=== PATIENT | female | born 1955 | race Caucasian/White ===

== ENCOUNTER 2018-02-13 10:24 | Inpatient (IN) | payer MEDICAID, OTHER ==
[~2018-02-13] VITALS: Ht 165.1 cm; Wt 90.9 kg
[2018-02-13] VITALS (9 sets, daily range): BP systolic 87–102; BP diastolic 64–72
[2018-02-13] MEDS: CefTRIAXone/D5W-Rocephin 1gm 50 ML IV SCH (08:00)
[2018-02-13] MEDS: K, MAG and/or Phos replacement - Verify level? MC SCH (08:00)
[2018-02-13] MEDS ORDERED: LORazepam 2 mg/ml vial IV ONE (10:35)
[2018-02-13] MEDS ORDERED: benztropine 1 mg/ml 2ml ampule IV ONE (10:35)
[2018-02-13] MEDS ORDERED: normal saline 1000ML IV soln IVB ONE (10:40)
[2018-02-13] MEDS ORDERED: propofol 1000mg/100ml bottle 100 ML IV ONE (10:56)
[2018-02-13 10:58] LABS: BASOPHILS # (AUTO) 0.1 X10'3 (0-0.2); BASOPHILS % (AUTO) 0.4 % (0-1); EOSINOPHILS # (AUTO) 0.5 X10'3 (0-0.9); EOSINOPHILS % (AUTO) 3.2 % (0-6); HEMOGLOBIN 10.3 g/dl (12.0-16.0); LYMPHOCYTES # (AUTO) 2.5 X10'3 (1.1-4.8); LYMPHOCYTES % (AUTO) 16.5 % (21-51); MEAN CORPUSCULAR HEMOGLOBIN 29.2 PG (27.0-31.0); MEAN CORPUSCULAR HGB CONC 33.2 % (33.0-36.5); MONOCYTES # (AUTO) 0.6 X10'3 (0-0.9); NEUTROPHILS # (AUTO) 11.3 X10'3 (1.8-7.7); NEUTROPHILS % (AUTO) 75.9 % (42-75); PLATELET COUNT 483 X10'3 (140-440); RED BLOOD COUNT 3.53 X10'6 (4.20-5.60); RED CELL DISTRIBUTION WIDTH 15.1 % (11.5-14.5); WHITE BLOOD COUNT 14.9 X10'3 (4.5-11.0)
[2018-02-13 11:12] LABS: ALANINE AMINOTRANSFERASE 14 U/L (12-78); ALBUMIN 2.9 G/DL (3.4-5.0); ALBUMIN/GLOBULIN RATIO 0.9 (1.1-1.5); ALKALINE PHOSPHATASE 85 IU/L (46-116); ANION GAP 17 (8-16); ASPARTATE AMINO TRANSFERASE 13 U/L (10-37); BILIRUBIN,TOTAL 0.2 MG/DL (0.1-1.0); BLOOD UREA NITROGEN 14 MG/DL (7-18); BUN/CREATININE RATIO 13.6 (6.6-38.0); CALCIUM 8.2 MG/DL (8.5-10.1); CHLORIDE 107 MMOL/L (99-107); CREATININE 1.03 MG/DL (0.40-0.90); GLUCOSE 273 MG/DL (70-104); POTASSIUM 3.7 MMOL/L (3.5-5.1); SODIUM 140 MMOL/L (135-145); TOTAL CARBON DIOXIDE 16.5 MMOL/L (24-32); TOTAL PROTEIN 6.3 G/DL (6.4-8.2); eGFR 54 ML/MIN
[2018-02-13 11:20] LABS: MAGNESIUM 1.4 MG/DL (1.5-2.4); PHOSPHORUS 3.5 MG/DL (2.3-4.5)
[2018-02-13] MEDS ORDERED: CefTRIAXone 2gm/D5W 50ml 50 ML IV ONE (11:20)
[2018-02-13] MEDS ORDERED: normal saline 1000ML IV soln IV ONE (11:20)
[2018-02-13 11:46] LABS: ABG BASE EXCESS -7.3 mmol/L (-2.0-3.0); ABG HCO3 17.1 mmol/L (22.0-26.0); ABG PCO2 (T) 31.7 mmHg (32.0-45.0); ABG PH (T) 7.352 (7.350-7.450); ABG PO2 (T) 90.3 mmHg (83-108); ALLEN'S TEST Positive; FCOHb 0.7 % (0.5-1.5); FLOW 40 L/min; FMetHb 0.2 % (0.3-1.12); FO2Hb 96.1 % (94-100); PATIENT TEMPERATURE 37.5
[2018-02-13] MEDS ORDERED: Neutra Phos packet PO PRN (12:00)
[2018-02-13] MEDS ORDERED: acetaminophen 325mg tablet PO PRN ×3 (12:00→15:55)
[2018-02-13] MEDS ORDERED: bisacodyl 10mg suppository rectal RC PRN (12:00)
[2018-02-13] MEDS ORDERED: potassium Cl 20 mEq SR tablet PO PRN ×2 (12:00)
[2018-02-13] MEDS ORDERED: sodium phosphate inj. 15 MMOL in dextrose 5%-water 150 ML IV PRN (12:00)
[2018-02-13] MEDS ORDERED: magnesium hydroxide 30ml (MOM) UD suspension PO PRN ×2 (12:00→16:05)
[2018-02-13] MEDS ORDERED: magnesium 4gm in 100ml NS 100 ML IV PRN (12:00)
[2018-02-13] MEDS ORDERED: sodium phosphate inj. 30 MMOL in dextrose 5%-water 250 ML IV PRN (12:00)
[2018-02-13] MEDS ORDERED: magnesium Cl slow-release 64mg tablet PO PRN (12:00)
[2018-02-13] MEDS ORDERED: magnesium 2GM in 50ml NS 50 ML IV PRN (12:00)
[2018-02-13] MEDS ORDERED: ondansetron/PF 4mg/2ml inj IV PRN (12:00)
[2018-02-13] MEDS: sodium bicarbonate (8.4%) inj. 150 MEQ in dextrose 5%-water 1,000 ML IV SCH (13:04)
[2018-02-13] MEDS ORDERED: ATOR20TA66 PO (13:49)
[2018-02-13] MEDS ORDERED: FLUR30CA13 PO (13:51)
[2018-02-13] MEDS ORDERED: GLIP5TAB13 PO (13:51)
[2018-02-13] MEDS ORDERED: MULT-933 PO (13:52)
[2018-02-13] MEDS ORDERED: LISI-600 PO (13:52)
[2018-02-13] MEDS ORDERED: METF500T PO (13:54)
[2018-02-13] MEDS ORDERED: HYDR12.5 PO (13:54)
[2018-02-13] MEDS ORDERED: LITH450T2 PO (13:54)
[2018-02-13] MEDS ORDERED: PALI234D IM (13:56)
[2018-02-13] MEDS ORDERED: OLAN10TA3 PO (13:59)
[2018-02-13] MEDS ORDERED: TRIH2TAB3 PO (13:59)
[2018-02-13] MEDS ORDERED: IBUP-2264 PO (14:01)
[2018-02-13] MEDS ORDERED: LORA-269 PO (14:01)
[2018-02-13] MEDS ORDERED: MAGN800O PO (14:04)
[2018-02-13] MEDS ORDERED: TRAM50TA2 PO (14:04)
[2018-02-13] MEDS ORDERED: ACET-2119 PO (14:04)
[2018-02-13] MEDS ORDERED: LORA2VIA27 IM (14:04)
[2018-02-13] MEDS ORDERED: INSU100C10 SQ (14:08)
[2018-02-13] MEDS ORDERED: ALBU8.5H8 INH (14:08)
[2018-02-13] MEDS ORDERED: MAGNESIUM HYDROXIDE 1200 MG PO PRN (15:55)
[2018-02-13] MEDS ORDERED: LORazepam 0.5 MG tablet PO PRN (15:55)
[2018-02-13] MEDS ORDERED: non-formulary drug (Albuterol Sulfate (Proair Hfa) 2 PUFFS) INH PRN (15:55)
[2018-02-13] MEDS ORDERED: FLURAZEPAM HCL 30 MG PO PRN (15:55)
[2018-02-13] MEDS ORDERED: albuterol 2.5 MG/3 ML nebule NEB PRN (16:05)
[2018-02-13] MEDS ORDERED: temazepam 15mg capsule PO PRN (16:05)
[2018-02-13] MEDS: glipizide 5mg tablet PO SCH (19:02)
[2018-02-13] MEDS: HYDROchlorothiazide 12.5mg capsule PO SCH (19:03)
[2018-02-13] MEDS: atorvastatin 20mg tablet PO SCH (19:03)
[2018-02-13] MEDS: lisinopril 10 MG tablet PO SCH (19:03)
[2018-02-13] MEDS: lithium carbonate 300mg SR tablet (LithoBID) PO SCH (20:00)
[2018-02-13] MEDS: olanzapine 10mg tablet PO SCH (20:00)
[2018-02-13] MEDS: heparin, porcine 5000 units/ml vial SQ SCH (20:00)
[2018-02-13] MEDS ORDERED: MESSAGE TO PHARMACY PO ONE (20:50)
[2018-02-13] MEDS ORDERED: dextrose ORAL solution 15 GM/59 ML bottle PO PRN ×2 (20:50)
[2018-02-13] MEDS ORDERED: insulin Lispro (HumaLOG) vial - multi-dose SQ SCH (20:50)
[2018-02-13] MEDS ORDERED: glucagon, human recombinant 1mg kit SUBCUT PRN (20:50)
[2018-02-13] MEDS ORDERED: dextrose 50%-water 50ml dispensing syringe IV PRN ×2 (20:50)
[2018-02-13] MEDS ORDERED: insulin glargine (Lantus) pen - multi-dose SQ SCH (21:00)
[2018-02-14] VITALS (15 sets, daily range): BP systolic 83–117; BP diastolic 60–79
[2018-02-14] MEDS: sodium bicarbonate (8.4%) inj. 150 MEQ in dextrose 5%-water 1,000 ML IV SCH ×3 (00:02→12:35)
[2018-02-14 05:30] LABS: BASOPHILS % (AUTO) 0.4 % (0-1); EOSINOPHILS # (AUTO) 0.3 X10'3 (0-0.9); EOSINOPHILS % (AUTO) 3.3 % (0-6); HEMATOCRIT 29.1 % (35.0-45.0); HEMOGLOBIN 9.7 g/dl (12.0-16.0); LYMPHOCYTES # (AUTO) 2.9 X10'3 (1.1-4.8); LYMPHOCYTES % (AUTO) 27.4 % (21-51); MEAN CORPUSCULAR HEMOGLOBIN 29.1 PG (27.0-31.0); MEAN CORPUSCULAR HGB CONC 33.4 % (33.0-36.5); MEAN CORPUSCULAR VOLUME 86.9 FL (78-98); MEAN PLATELET VOLUME 7.4 FL (7.4-10.4); MONOCYTES # (AUTO) 0.7 X10'3 (0-0.9); MONOCYTES % (AUTO) 6.7 % (2-12); NEUTROPHILS # (AUTO) 6.6 X10'3 (1.8-7.7); NEUTROPHILS % (AUTO) 62.2 % (42-75); PARTIAL THROMBOPLASTIN TIME 26 SECONDS (22-32); PLATELET COUNT 450 X10'3 (140-440); PROTHROMBIN TIME 10.4 SECONDS (9.0-12.0); RED BLOOD COUNT 3.35 X10'6 (4.20-5.60); RED CELL DISTRIBUTION WIDTH 15.1 % (11.5-14.5); WHITE BLOOD COUNT 10.5 X10'3 (4.5-11.0)
[2018-02-14 05:43] LABS: ALANINE AMINOTRANSFERASE 23 U/L (12-78); ALBUMIN 2.8 G/DL (3.4-5.0); ALBUMIN/GLOBULIN RATIO 0.8 (1.1-1.5); ALKALINE PHOSPHATASE 69 IU/L (46-116); ANION GAP 6 (8-16); ASPARTATE AMINO TRANSFERASE 66 U/L (10-37); BILIRUBIN,TOTAL 0.3 MG/DL (0.1-1.0); BLOOD UREA NITROGEN 9 MG/DL (7-18); BUN/CREATININE RATIO 11.1 (6.6-38.0); CHLORIDE 110 MMOL/L (99-107); CREATININE 0.81 MG/DL (0.40-0.90); GLUCOSE 131 MG/DL (70-104); MAGNESIUM 1.8 MG/DL (1.5-2.4); PHOSPHORUS 3.2 MG/DL (2.3-4.5); POTASSIUM 3.7 MMOL/L (3.5-5.1); SODIUM 145 MMOL/L (135-145); TOTAL CARBON DIOXIDE 29.1 MMOL/L (24-32); TOTAL PROTEIN 6.3 G/DL (6.4-8.2); eGFR 72 ML/MIN
[2018-02-14 06:00] LABS: HEMOGLOBIN A1C 6.4 % (4.5-6.2)
[2018-02-14] MEDS: atorvastatin 20mg tablet PO SCH (07:24)
[2018-02-14] MEDS: CefTRIAXone/D5W-Rocephin 1gm 50 ML IV SCH (07:24)
[2018-02-14] MEDS: HYDROchlorothiazide 12.5mg capsule PO SCH (07:25)
[2018-02-14] MEDS: heparin, porcine 5000 units/ml vial SQ SCH (07:26)
[2018-02-14] MEDS: lisinopril 10 MG tablet PO SCH (07:26)
[2018-02-14] MEDS: glipizide 5mg tablet PO SCH (07:26)
[2018-02-14] MEDS ORDERED: non-formulary drug (Multivitamin (One Daily Multivitamin) 1 TAB) PO SCH (08:00)
[2018-02-14] MEDS ORDERED: multivitamins, therapeutics tablet PO SCH (08:00)
[2018-02-14] MEDS: olanzapine 10mg tablet PO SCH (08:00)
[2018-02-14] MEDS: K, MAG and/or Phos replacement - Verify level? MC SCH (08:00)
[2018-02-14] MEDS: lithium carbonate 300mg SR tablet (LithoBID) PO SCH (09:57)
[2018-02-14] MEDS ORDERED: lactobacillus rhamnosus 10,000 MMU CELLS/CAPSULE PO SCH (20:00)
== END 2018-02-14 16:18 | DRG 58 ==
LOC: ER 10:26 → ED HOLD 11:57 → ICU 2S 15:29
DX: G21.0 Malignant neuroleptic syndrome (principal); I10 Essential (primary) hypertension; E11.9 Type 2 diabetes mellitus without complications; T43.505A Adverse effect of unspecified antipsychotics and neuroleptics, initial encounter; F31.9 Bipolar disorder, unspecified; Z88.8 Allergy status to other drugs, medicaments and biological substances; Z79.899 Other long term (current) drug therapy; Z79.4 Long term (current) use of insulin; Y92.89 Other specified places as the place of occurrence of the external cause
CPT/HCPCS: 36415; 36600; 71045; 80053; 82803; 82948; 83036; 83605; 83735; 84100; 84443; 84484; 85018; 85025; 85610; 85730; 87040; 87070; 93005; 96361; 96374; 96375; 97116; 97161; 97535; 99285; A6213; C1758; J0515; J0696; J1644; J1815; J2060; J2704; J7030

== ENCOUNTER 2018-03-02 16:26 | Inpatient (IN) | payer MEDICAID ==
[~2018-03-02] VITALS: Ht 165.1 cm; Wt 81.0 kg
[~2018-03-02 16:26] MED LIST: ACET-2119 PO; ALBU8.5H8 INH; ATOR20TA66 PO; GLIP5TAB13 PO; HYDR12.5 PO; LISI-600 PO; LITH450T2 PO; LORA-269 PO; MAGN800O PO; METF500T PO; MULT-933 PO; PALI234D IM; TRIH2TAB3 PO
[2018-03-02] MEDS ORDERED: normal saline 1000ML IV soln IV ONE (16:50)
[2018-03-02 17:23] LABS: CLARITY,URINE CLEAR (Clear); GLUCOSE, URINE NEGATIVE (Neg); KETONES,URINE NEGATIVE (Neg); LEUKOCYTE ESTERASE ,URINE NEGATIVE (Neg); NITRITES, URINE NEGATIVE (Neg); OCCULT BLOOD,URINE NEGATIVE (Neg); PROTEIN,URINE NEGATIVE (Neg); UROBILINOGEN,URINE 0.2 E.U/dL (0.2-1.0)
[2018-03-02 17:24] LABS: COLOR,URINE STRAW (Yellow); UA COLLECTION TYPE STRAIGHT CATH
[2018-03-02 17:31] LABS: BASOPHILS # (AUTO) 0.1 X10'3 (0-0.2); BASOPHILS % (AUTO) 0.4 % (0-1); EOSINOPHILS # (AUTO) 0.3 X10'3 (0-0.9); EOSINOPHILS % (AUTO) 2.4 % (0-6); HEMOGLOBIN 12.3 g/dl (12.0-16.0); LYMPHOCYTES # (AUTO) 3.1 X10'3 (1.1-4.8); LYMPHOCYTES % (AUTO) 24.4 % (21-51); MEAN CORPUSCULAR HEMOGLOBIN 29.7 PG (27.0-31.0); MEAN CORPUSCULAR HGB CONC 33.3 % (33.0-36.5); MEAN CORPUSCULAR VOLUME 89.2 FL (78-98); MEAN PLATELET VOLUME 7.2 FL (7.4-10.4); MONOCYTES # (AUTO) 0.7 X10'3 (0-0.9); MONOCYTES % (AUTO) 5.4 % (2-12); NEUTROPHILS # (AUTO) 8.6 X10'3 (1.8-7.7); NEUTROPHILS % (AUTO) 67.4 % (42-75); PLATELET COUNT 439 X10'3 (140-440); RED BLOOD COUNT 4.15 X10'6 (4.20-5.60); RED CELL DISTRIBUTION WIDTH 15.9 % (11.5-14.5); WHITE BLOOD COUNT 12.8 X10'3 (4.5-11.0)
[2018-03-02] MEDS ORDERED: dextrose 50%-water 50ml dispensing syringe IV ONE (17:40)
[2018-03-02] MEDS ORDERED: potassium Cl 20 mEq SR tablet PO ONE (17:40)
[2018-03-02 17:41] LABS: PARTIAL THROMBOPLASTIN TIME 27 SECONDS (22-32); PROTHROMBIN TIME 10.2 SECONDS (9.0-12.0)
[2018-03-02 17:46] LABS: ALANINE AMINOTRANSFERASE 18 U/L (12-78); ALBUMIN 3.3 G/DL (3.4-5.0); ALBUMIN/GLOBULIN RATIO 0.9 (1.1-1.5); ALKALINE PHOSPHATASE 98 IU/L (46-116); ANION GAP 9 (8-16); ASPARTATE AMINO TRANSFERASE 13 U/L (10-37); BILIRUBIN,TOTAL 0.5 MG/DL (0.1-1.0); BLOOD UREA NITROGEN 30 MG/DL (7-18); BUN/CREATININE RATIO 19.6 (6.6-38.0); CALCIUM 9.3 MG/DL (8.5-10.1); CHLORIDE 103 MMOL/L (99-107); CREATININE 1.53 MG/DL (0.40-0.90); GLUCOSE 95 MG/DL (70-104); POTASSIUM 3.9 MMOL/L (3.5-5.1); SODIUM 135 MMOL/L (135-145); TOTAL CARBON DIOXIDE 22.8 MMOL/L (24-32); eGFR 35 ML/MIN
[2018-03-02 17:49] LABS: CREATINE KINASE 58 U/L (26-192)
[2018-03-02] MEDS ORDERED: dextrose 5%-1/2 normal saline 1,000 ML IV ONE (19:44)
[2018-03-02] MEDS ORDERED: BENZ2TAB7 PO (20:05)
[2018-03-02] MEDS ORDERED: IBUP200C5 PO (20:05)
[2018-03-02] MEDS ORDERED: acetaminophen 325mg tablet PO PRN (22:10)
[2018-03-02] MEDS ORDERED: ondansetron/PF 4mg/2ml inj IV PRN (22:10)
[2018-03-02] MEDS ORDERED: bisacodyl 10mg suppository rectal RC PRN (22:10)
[2018-03-02] MEDS ORDERED: mag hydrox/Alum hydrox/simeth 30ml oral suspension PO PRN (22:10)
[2018-03-02 23:45] VITALS: BP 112/56
[2018-03-03] MEDS ORDERED: LORazepam 0.5 MG tablet PO PRN (00:25)
[2018-03-03] MEDS ORDERED: magnesium hydroxide 30ml (MOM) UD suspension PO PRN (00:25)
[2018-03-03] MEDS ORDERED: albuterol 2.5 MG/3 ML nebule NEB PRN (00:50)
[2018-03-03] MEDS: DEXTROSE 10 % AND 0.45 % NACL 1,000 ML IV SCH ×2 (01:22→13:42)
[2018-03-03 06:00] VITALS: BP 113/68
[2018-03-03 06:16] LABS: BASOPHILS % (AUTO) 0.5 % (0-1); EOSINOPHILS # (AUTO) 0.5 X10'3 (0-0.9); EOSINOPHILS % (AUTO) 4.6 % (0-6); HEMATOCRIT 33.1 % (35.0-45.0); HEMOGLOBIN 10.9 g/dl (12.0-16.0); LYMPHOCYTES # (AUTO) 2.9 X10'3 (1.1-4.8); LYMPHOCYTES % (AUTO) 29.6 % (21-51); MEAN CORPUSCULAR HEMOGLOBIN 29.5 PG (27.0-31.0); MEAN CORPUSCULAR VOLUME 89.2 FL (78-98); MONOCYTES # (AUTO) 0.7 X10'3 (0-0.9); MONOCYTES % (AUTO) 6.9 % (2-12); NEUTROPHILS # (AUTO) 5.8 X10'3 (1.8-7.7); NEUTROPHILS % (AUTO) 58.4 % (42-75); PLATELET COUNT 411 X10'3 (140-440); RED BLOOD COUNT 3.71 X10'6 (4.20-5.60); WHITE BLOOD COUNT 9.9 X10'3 (4.5-11.0)
[2018-03-03 06:33] LABS: ALANINE AMINOTRANSFERASE 16 U/L (12-78); ALBUMIN 2.9 G/DL (3.4-5.0); ALBUMIN/GLOBULIN RATIO 0.9 (1.1-1.5); ALKALINE PHOSPHATASE 85 IU/L (46-116); ANION GAP 10 (8-16); ASPARTATE AMINO TRANSFERASE 10 U/L (10-37); BILIRUBIN,TOTAL 0.4 MG/DL (0.1-1.0); BLOOD UREA NITROGEN 19 MG/DL (7-18); CALCIUM 9.6 MG/DL (8.5-10.1); CHLORIDE 107 MMOL/L (99-107); CREATININE 0.95 MG/DL (0.40-0.90); GLUCOSE 141 MG/DL (70-104); MAGNESIUM 1.9 MG/DL (1.5-2.4); PHOSPHORUS 3.6 MG/DL (2.3-4.5); POTASSIUM 3.9 MMOL/L (3.5-5.1); SODIUM 140 MMOL/L (135-145); TOTAL CARBON DIOXIDE 22.9 MMOL/L (24-32); TOTAL PROTEIN 6.2 G/DL (6.4-8.2); eGFR 60 ML/MIN
[2018-03-03] MEDS: lisinopril 10 MG tablet PO SCH (07:04)
[2018-03-03] MEDS: nicotine 21mg patch - 24 hr TD SCH (07:04)
[2018-03-03] MEDS: HYDROchlorothiazide 12.5mg capsule PO SCH (07:05)
[2018-03-03] MEDS: multivitamins, therapeutics tablet PO SCH (07:05)
[2018-03-03] MEDS: atorvastatin 20mg tablet PO SCH (07:05)
[2018-03-03] MEDS ORDERED: lithium carbonate 300mg SR tablet (LithoBID) PO SCH ×2 (08:00→20:00)
[2018-03-03 10:00] VITALS: BP 94/61
[2018-03-03] MEDS ORDERED: Dextrose 10%-water IV solution 1,000 ML IV SCH (14:40)
[2018-03-03] MEDS ORDERED: sodium chloride 0.45% 1,000 ML IV SCH (14:40)
[2018-03-03] MEDS: normal saline 1000ml 1,000 ML IV SCH ×2 (15:13→23:00)
[2018-03-03 17:28] VITALS: BP 114/69
[2018-03-03 22:00] VITALS: BP 106/62
[2018-03-04 05:01] LABS: ALANINE AMINOTRANSFERASE 15 U/L (12-78); ALBUMIN 2.8 G/DL (3.4-5.0); ALBUMIN/GLOBULIN RATIO 0.8 (1.1-1.5); ALKALINE PHOSPHATASE 89 IU/L (46-116); ANION GAP 13 (8-16); ASPARTATE AMINO TRANSFERASE 14 U/L (10-37); BILIRUBIN,TOTAL 0.3 MG/DL (0.1-1.0); BLOOD UREA NITROGEN 8 MG/DL (7-18); BUN/CREATININE RATIO 11.3 (6.6-38.0); CALCIUM 8.9 MG/DL (8.5-10.1); CHLORIDE 108 MMOL/L (99-107); CREATININE 0.71 MG/DL (0.40-0.90); GLUCOSE 117 MG/DL (70-104); MAGNESIUM 1.6 MG/DL (1.5-2.4); PHOSPHORUS 3.4 MG/DL (2.3-4.5); POTASSIUM 3.9 MMOL/L (3.5-5.1); SODIUM 141 MMOL/L (135-145); TOTAL PROTEIN 6.1 G/DL (6.4-8.2); eGFR 84 ML/MIN
[2018-03-04 05:29] LABS: BASOPHILS # (AUTO) 0.1 X10'3 (0-0.2); BASOPHILS % (AUTO) 1.2 % (0-1); EOSINOPHILS # (AUTO) 0.5 X10'3 (0-0.9); EOSINOPHILS % (AUTO) 4.9 % (0-6); LYMPHOCYTES # (AUTO) 3.1 X10'3 (1.1-4.8); LYMPHOCYTES % (AUTO) 30.9 % (21-51); MEAN CORPUSCULAR HEMOGLOBIN 29.5 PG (27.0-31.0); MEAN CORPUSCULAR HGB CONC 33.3 % (33.0-36.5); MEAN CORPUSCULAR VOLUME 88.7 FL (78-98); MEAN PLATELET VOLUME 7.7 FL (7.4-10.4); MONOCYTES # (AUTO) 0.6 X10'3 (0-0.9); MONOCYTES % (AUTO) 6.1 % (2-12); NEUTROPHILS # (AUTO) 5.7 X10'3 (1.8-7.7); NEUTROPHILS % (AUTO) 56.9 % (42-75); PLATELET COUNT 366 X10'3 (140-440); RED BLOOD COUNT 4.06 X10'6 (4.20-5.60); RED CELL DISTRIBUTION WIDTH 16.3 % (11.5-14.5); WHITE BLOOD COUNT 10.1 X10'3 (4.5-11.0)
[2018-03-04 06:00] VITALS: BP 120/67
[2018-03-04] MEDS: normal saline 1000ml 1,000 ML IV SCH ×2 (06:45→08:54)
[2018-03-04] MEDS ORDERED: enoxaparin 40mg/0.4ml syringe SUBCUT SCH (08:00)
[2018-03-04 08:30] VITALS: BP 108/69
[2018-03-04] MEDS: HYDROchlorothiazide 12.5mg capsule PO SCH (08:43)
[2018-03-04] MEDS: atorvastatin 20mg tablet PO SCH (08:43)
[2018-03-04] MEDS: lisinopril 10 MG tablet PO SCH (08:43)
[2018-03-04] MEDS: multivitamins, therapeutics tablet PO SCH (08:43)
[2018-03-04] MEDS: nicotine 21mg patch - 24 hr TD SCH (08:43)
[2018-03-04 10:00] VITALS: BP 139/71
== END 2018-03-04 15:00 | DRG 420 ==
LOC: ER 16:27 → ED HOLD 22:06 → ORTHO 4S 23:45 → OBSVTOIN 03-03 14:00
PROVIDERS: ADMIT Emergency Medicine; ATTEND Family Medicine
DX: E11.649 Type 2 diabetes mellitus with hypoglycemia without coma (principal); N17.0 Acute kidney failure with tubular necrosis; G21.0 Malignant neuroleptic syndrome; I10 Essential (primary) hypertension; F25.9 Schizoaffective disorder, unspecified; D64.9 Anemia, unspecified; E78.00 Pure hypercholesterolemia, unspecified; J44.9 Chronic obstructive pulmonary disease, unspecified; G89.29 Other chronic pain; T56.891A Toxic effect of other metals, accidental (unintentional), initial encounter; I95.9 Hypotension, unspecified; E78.5 Hyperlipidemia, unspecified; Z88.8 Allergy status to other drugs, medicaments and biological substances; Y92.89 Other specified places as the place of occurrence of the external cause; Z79.84 Long term (current) use of oral hypoglycemic drugs
CPT/HCPCS: 36415; 71045; 80053; 80178; 81003; 82550; 82948; 83036; 83605; 83735; 84100; 84145; 85025; 85610; 85730; 87040; 87070; G0378; J1650; J7030